=== PATIENT | male | born 1970 | race Caucasian/White ===

== ENCOUNTER 2017-07-16 08:44 | Day surgery (SDC) | payer MEDICAID ==
[2017-07-09 10:45] LABS: APPEARANCE,URINE CLEAR; BILIRUBIN,URINE NEGATIVE (NEGATIVE); GLUCOSE, URINE NEGATIVE (NEGATIVE); KETONES,URINE NEGATIVE (NEGATIVE); LEUKOCYTE ESTERASE,URINE NEGATIVE (NEGATIVE); NITRITE,URINE NEGATIVE (NEGATIVE); PROTEIN,URINE NEGATIVE (NEGATIVE); URINE SPECIFIC GRAVITY 1.028; UROBILINOGEN,URINE NEGATIVE mg/dL (<2.0)
[2017-07-09 10:57] LABS: ABSOLUTE EOSINOPHILS # (AUTO) 0.1 10^3/uL (0.0-0.6); ABSOLUTE LYMPHOCYTES (AUTO) 1.4 10^3/uL (0.5-4.7); ABSOLUTE MONOCYTES (AUTO) 0.4 10^3/uL (0.1-1.4); BASOPHILS % (AUTO) 0.6 % (0-2); EOSINOPHILS % (AUTO) 2.2 % (0-6); HEMATOCRIT 44.3 % (37.9-51.0); HEMOGLOBIN 15.4 g/dL (13.5-17.0); HGB HCT DIFFERENCE 1.9; LYMPHOCYTES % (AUTO) 36.1 % (13-45); MEAN CORPUSCULAR HEMOGLOBIN 32.3 pg (27.0-33.4); MEAN CORPUSCULAR HGB CONC 34.7 g/dL (32.0-36.0); MEAN CORPUSCULAR VOLUME 93 fl (80-97); MONOCYTES % (AUTO) 10.5 % (3-13); RED BLOOD COUNT 4.76 10^6/uL (4.35-5.55); RED CELL DISTRIBUTION WIDTH 13.1 % (11.5-14.0); SEGMENTED NEUTROPHILS % (AUTO) 50.6 % (42-78)
[2017-07-09 11:22] LABS: ANION GAP 11 (5-19); BLOOD UREA NITROGEN 18 mg/dL (7-20); CALCIUM 9.1 mg/dL (8.4-10.2); CARBON DIOXIDE 26 mmol/L (22-30); CHLORIDE 108 mmol/L (98-107); CREATININE RESULT 0.93 mg/dL (0.52-1.25); GLUCOSE 90 mg/dL (75-110); POTASSIUM 4.6 mmol/L (3.6-5.0); SODIUM 145.2 mmol/L (137-145)
--- NOTE | 2017-07-09 13:12 | EKG REPORT ---
SEVERITY:- NORMAL ECG - SINUS RHYTHM : Confirmed by: Chuck Merrill MD 09-Jul-2017 13:11:52
[~2017-07-16 08:44] MED LIST: CEFAZOLIN 2 GM/D5W RTU 2 GM/50 ML RTUPB IV PRN; LACTATED RINGERS 1000 ML IV PRN
[2017-07-16] MEDS ORDERED: BUPIVACAINE HCL 0.5 % INJ/PF 30 ML SDV ONE (10:38)
[2017-07-16] MEDS ORDERED: LIDOCAINE 1% INJ-PF (10 MG/ML) 30 ML SDV ONE (10:39)
[2017-07-16] MEDS ORDERED: MIDAZOLAM 2 MG/2 ML INJ ONE (11:17)
[2017-07-16] MEDS ORDERED: FENTANYL CITRATE INJ/PF 100 MCG/2 ML AMPUL ONE (11:17)
[2017-07-16] MEDS ORDERED: LIDOCAINE 2% INJ-PF (20 MG/ML) 10 ML AMPUL ONE (11:17)
[2017-07-16] MEDS ORDERED: PROPOFOL INJ 200 MG/20 ML VIAL IV ONE (11:18)
[2017-07-16] MEDS ORDERED: ACETAMINOPHEN 100 ML IV ONE (11:18)
[2017-07-16] MEDS ORDERED: ONDANSETRON HCL INJ/PF 4 MG/2 ML SDV ONE ×2 (11:18→13:26)
[2017-07-16] MEDS ORDERED: IBUPROFEN INJ 800 MG/8 ML VIAL IV ONE (11:18)
[2017-07-16] MEDS ORDERED: MORPHINE SULFATE 10 MG/ML INJ IV PRN (11:50)
[2017-07-16] MEDS ORDERED: DIPHENHYDRAMINE HCL 50 MG/ML VIAL IV PRN (11:50)
[2017-07-16] MEDS ORDERED: MEPERIDINE HCL/PF INJ 25 MG/1 ML DISP.SYRIN IV PRN (11:50)
[2017-07-16] MEDS ORDERED: OXYCODONE-ACETAMINOPHEN 5-325 MG TABLET PO PRN ×3 (11:50→12:37)
[2017-07-16] MEDS ORDERED: PROMETHAZINE HCL INJ 25 MG/1 ML VIAL IV PRN ×2 (11:50)
[2017-07-16] MEDS ORDERED: FENTANYL CITRATE INJ/PF 100 MCG/2 ML AMPUL IV PRN ×3 (11:50)
[2017-07-16] MEDS ORDERED: ONDANSETRON HCL INJ/PF 4 MG/2 ML SDV IV PRN ×2 (11:50→12:37)
[2017-07-16] MEDS ORDERED: HYDROMORPHONE HCL INJ/PF 2 MG/ML AMPULE IV PRN (12:37)
--- NOTE | 2017-07-16 12:37 | Operative Report ---
Operative Report DATE OF SURGERY: 07/16/17 PREOPERATIVE DIAGNOSIS: Right carpal tunnel syndrome. Right cubital tunnel syndrome POSTOPERATIVE DIAGNOSIS: Same OPERATION: #1 Right in situ cubital tunnel release. #2 Right endoscopic carpal tunnel release SURGEON: BRISA RICHTER ANESTHESIA: GA COMPLICATIONS: None ESTIMATED BLOOD LOSS: minimal PROCEDURE: Indication for above procedure: 47-year-old male with complaints of numbness and tingling throughout his hand. Patient had neurodiagnostic testing which was ultimately negative for cubital and carpal tunnel syndrome but had clinical examination findings of such. We discussed treatment options and attempted conservative management without resolution of his symptoms. At that point we discussed operative intervention risks and benefits were explained the patient including worsening of symptoms or failure to see improvement. After discussing these risks decision was made to proceed with operative treatment. Procedure In Detail: Patient was seen and evaluated in the preoperative holding area. The RIGHT upper extremity was initialized and marked. Patient received 2g of Ancef IV for bacterial prophylaxis. Patient was taken back to the operative room where transferred to the operative table and placed under general anesthesia. Once they were adequately anesthetized a nonsterile tourniquet was placed on the upper extremity. A surgical team debriefing was performed ensuring all instrumentation was available, the surgical procedure was discussed with possible concerns reviewed. The upper extremity was prepped with chlorhexidine and alcohol and draped in a sterile fashion. A timeout was done identifying correct patient, procedure and extremity everyone in attendance agree with this and verbalized no concerns. The extremity was exsanguinated the tourniquet was inflated to 250 mmHg. A longitudinal skin incision was made centered over the cubital tunnel. Careful dissection was done through the overlying soft tissues any peripheral vasculature was carefully coagulated with bipolar cautery. The branches of the medial antebrachial cutaneous nerve were identified and protected throughout the entirety of the case. Once within the confines of the cubital tunnel the ulnar nerve was identified at the proximal aspect of the wound. At this level I carefully released a medial portion of the triceps and the medial intermuscular septum freeing the ulnar nerve proximally of any overlying soft tissue compression. I then continued to track the ulnar nerve distally releasing Christopher's fascia. At the level of the FCU aponeurosis between the 2 heads of the FCU muscle. The fascia was released once again relieving any external compression from the ulnar nerve distally past the level of the first motor branch. I then freed up the nerve posteriorly ensuring there is no remaining soft tissue bands causing compression. During dissection of the nerve careful attention was directed at avoiding disruption of the ulnar nerve blood supply. Elbow range of motion was then done from full flexion to full extension with full flexion there was evidence of perching of the ulnar nerve but no anterior subluxation or evidence of impingement. And thus I determined patient would not require anterior subcutaneous ulnar nerve transposition. I then turned my attention to carpal tunnel release. A transverse skin incision was made just proximal to the wrist flexion crease ulnar to the palmaris longus. Blunt dissection was performed down to the palmaris longus tendon which was retracted radially. Deep to the palmaris longus tendon was the volar carpal ligament this was incised identifying the median nerve deep. With the use of a [place] elevator any soft tissue/synovium was freed from the undersurface of the transverse carpal ligament. The hook of hamate was identified ulnarly. The ConMed cannulas were then introduced beginning with #1 progressing to a #3 gently dilating the carpal canal. I then introduced the scope within the cannula and identified transverse carpal ligament ensuring the median nerve was not visualized within the cannula. I triangulated distally with a 25-gauge needle identifying the distal aspect of the transverse carpal ligament, to ensure protection of the superficial palmar arch. The arthroscopic knife was used to incise the transverse carpal ligament under direct visualization with the arthroscopic camera. Any excess transverse fibers that remained after the first past were carefully released with a repeat pass. The median nerve was then directly visualized radially without disruption. Once this was completed I placed the #3 dilator and assured I got complete release of the transverse carpal ligament without residual compression. The median nerve was directly visualized and free of any overlying compression. I then turned my attention to release of the volar antebrachial fascia proximally. Once again a [place] was used to open the wound and I proceeded with cannula #1 to #3. The arthroscope was introduced into the cannula and under direct visualization the volar antebrachial fascia was released. Once this was complete I copiusly irrigated the wound with normal saline. The skin incision was closed with 4-0 Monocryl subcutaneous and a running subcuticular 4-0 Monocryl. This was reinforced with Dermabond and Steri- Strips. Sterile, 4 x 4's and a Lance bandage was placed loosely. Sponge counts, instrument counts and needle counts were correct. The was no intraoperative complications patient tolerated the procedure well and was stable to PACU. Postoperative plan: Patient will follow-up in the office as scheduled which point we will proceed with wound check. He may begin gentle range of motion exercises but avoid any heavy lifting at her first postoperative appointment.
[2017-07-16 16:40] VITALS: BP 125/88
--- NOTE | 2017-07-19 07:15 | PDOC DISCHARGE SUMMARY ---
Discharge Summary (SDC) - Discharge Final Diagnosis: Right carpal tunnel syndrome Right cubital tunnel syndrome Date of Surgery: 07/16/17 Discharge Date: 07/16/17 Condition: Good Treatment or Instructions: Schedule Follow Up w/ Dr. Maikel Ding @ [facility] for Surgery to be seen in 10-14 days or as scheduled [place]: [place]: [place]: May remove dressing on postop day #3, keep incision covered and dry. Ice and elevate May begin finger range of motion attempting to make full fist. Stool softener of choice when on pain medication. Prescriptions: Oxycodone HCl/Acetaminophen [Percocet 5-325 mg Tablet] 1 - 2 tab PO ASDIR PRN # 45 tablet PRN Reason: Referrals: JENNIFER BRIGGS DO [Primary Care Provider] - Discharge Diet: As Tolerated Respiratory Treatments at Home: Deep Breathing/Coughing, Incentive Spirometer Discharge Activity: No Lifting Over 10 Pounds, No Lifting/Push/Pulling Report the Following to Your Physician Immediately: Increase in Pain, Fever over 101 Degrees, Unusual Bleeding, Redness, Swelling, Warmth, Increased Soreness
== END 2017-07-16 15:05 | disposition home or self-care (01) ==
LOC: OROUT 08:44
PROVIDERS: ATTEND Orthopaedic Surgery
PROC: 01N40ZZ Release Ulnar Nerve, Open Approach (ICD-10-PCS; principal; 2017-07-16 10:30)
PROC: 01N54ZZ Release Median Nerve, Percutaneous Endoscopic Approach (ICD-10-PCS; 2017-07-16 10:30)
DX: G56.03 Carpal tunnel syndrome, bilateral upper limbs (principal); G56.23 Lesion of ulnar nerve, bilateral upper limbs; K21.9 Gastro-esophageal reflux disease without esophagitis; M79.643 Pain in unspecified hand; Z79.899 Other long term (current) drug therapy; Z87.891 Personal history of nicotine dependence
CPT/HCPCS: 93005; 36415; 85025; 80048; 81001; 93010; 64718; 29848; J2250; J3010; J2405; J2704; J3490; J0690; J0131; J1741; 1810

== ENCOUNTER 2017-10-22 06:05 | Day surgery (SDC) | payer MEDICAID ==
--- NOTE | 2017-10-16 09:30 | EKG REPORT ---
SEVERITY:- NORMAL ECG - SINUS RHYTHM : Confirmed by: Azeb Shin 16-Oct-2017 09:29:49
[2017-10-16 09:45] LABS: ABSOLUTE EOSINOPHILS # (AUTO) 0.1 10^3/uL (0.0-0.6); ABSOLUTE LYMPHOCYTES (AUTO) 1.4 10^3/uL (0.5-4.7); ABSOLUTE MONOCYTES (AUTO) 0.4 10^3/uL (0.1-1.4); BASOPHILS % (AUTO) 0.4 % (0-2); EOSINOPHILS % (AUTO) 2.2 % (0-6); HEMATOCRIT 42.7 % (37.9-51.0); HEMOGLOBIN 14.8 g/dL (13.5-17.0); LYMPHOCYTES % (AUTO) 36.6 % (13-45); MEAN CORPUSCULAR HEMOGLOBIN 31.5 pg (27.0-33.4); MEAN CORPUSCULAR HGB CONC 34.7 g/dL (32.0-36.0); MEAN CORPUSCULAR VOLUME 91 fl (80-97); PLATELET COUNT 216 10^3/uL (150-450); RED BLOOD COUNT 4.69 10^6/uL (4.35-5.55); RED CELL DISTRIBUTION WIDTH 12.7 % (11.5-14.0); SEGMENTED NEUTROPHILS % (AUTO) 50.8 % (42-78); TOTAL CELLS COUNTED % (AUTO) 100 %; WHITE BLOOD COUNT 3.9 10^3/uL (4.0-10.5)
[2017-10-16 09:57] LABS: APPEARANCE,URINE CLEAR; BILIRUBIN,URINE NEGATIVE (NEGATIVE); COLOR,URINE YELLOW; GLUCOSE, URINE 50 mg/dL (NEGATIVE); KETONES,URINE NEGATIVE (NEGATIVE); LEUKOCYTE ESTERASE,URINE NEGATIVE (NEGATIVE); NITRITE,URINE NEGATIVE (NEGATIVE); PROTEIN,URINE NEGATIVE (NEGATIVE); URINE SPECIFIC GRAVITY 1.017; UROBILINOGEN,URINE NEGATIVE mg/dL (<2.0)
[2017-10-16 10:05] LABS: ANION GAP 10 (5-19); BLOOD UREA NITROGEN 16 mg/dL (7-20); CALCIUM 9.5 mg/dL (8.4-10.2); CARBON DIOXIDE 24 mmol/L (22-30); CHLORIDE 106 mmol/L (98-107); GLUCOSE 84 mg/dL (75-110); POTASSIUM 4.2 mmol/L (3.6-5.0); SODIUM 140.1 mmol/L (137-145)
[~2017-10-22 06:05] MED LIST changes: +BUPIVACAINE HCL 0.5 % INJ/PF 30 ML SDV ONE; +LIDOCAINE 0.5% INJ-PF (5 MG/ML) 50 ML SDV SUBCUT PRN; +LIDOCAINE 1% INJ-PF (10 MG/ML) 30 ML SDV ONE
[2017-10-22] MEDS ORDERED: FENTANYL CITRATE INJ/PF 100 MCG/2 ML AMPUL ONE (06:47)
[2017-10-22] MEDS ORDERED: MIDAZOLAM 2 MG/2 ML INJ ONE (06:48)
[2017-10-22] MEDS ORDERED: PROPOFOL INJ 200 MG/20 ML VIAL IV ONE (06:48)
[2017-10-22] MEDS ORDERED: DEXAMETHASONE SOD PHOSPHATE INJ 4 MG/1 ML VIAL ONE (06:48)
[2017-10-22] MEDS ORDERED: ONDANSETRON HCL INJ/PF 4 MG/2 ML SDV ONE (06:48)
[2017-10-22] MEDS ORDERED: PROMETHAZINE HCL INJ 25 MG/1 ML VIAL IV PRN (08:27)
[2017-10-22] MEDS ORDERED: MEPERIDINE HCL/PF INJ 25 MG/1 ML DISP.SYRIN IV PRN (08:27)
[2017-10-22] MEDS ORDERED: DIPHENHYDRAMINE HCL 50 MG/ML VIAL IV PRN (08:27)
[2017-10-22] MEDS ORDERED: FENTANYL CITRATE INJ/PF 100 MCG/2 ML AMPUL IV PRN ×3 (08:27)
[2017-10-22] MEDS ORDERED: OXYCODONE-ACETAMINOPHEN 5-325 MG TABLET PO PRN (09:21)
[2017-10-22] MEDS ORDERED: MORPHINE SULFATE 10 MG/ML INJ IV PRN (09:21)
[2017-10-22] MEDS ORDERED: ONDANSETRON HCL INJ/PF 4 MG/2 ML SDV IV PRN (09:21)
--- NOTE | 2017-10-22 09:21 | Operative Report ---
Operative Report DATE OF SURGERY: 10/22/17 PREOPERATIVE DIAGNOSIS: Left carpal/cubital tunnel syndrome POSTOPERATIVE DIAGNOSIS: Same OPERATION: 1. Left in situ cubital tunnel release. 2. Left endoscopic carpal tunnel release SURGEON: BRISA RICHTER ANESTHESIA: GA COMPLICATIONS: None ESTIMATED BLOOD LOSS: Minimal PROCEDURE: Indication for above procedure: 47-year-old male with complaints of numbness and tingling throughout his LEFT hand. Patient had neurodiagnostic testing which was ultimately negative for cubital and carpal tunnel syndrome but had clinical examination findings of such and patient saw significant improvement after right cubital/carpal tunnel release. We discussed treatment options and attempted conservative management without resolution of his symptoms. At that point we discussed operative intervention risks and benefits were explained the patient including worsening of symptoms or failure to see improvement. After discussing these risks decision was made to proceed with operative treatment. Procedure In Detail: Patient was seen and evaluated in the preoperative holding area. The LEFT upper extremity was initialized and marked. Patient received 2g of Ancef IV for bacterial prophylaxis. Patient was taken back to the operative room where transferred to the operative table and placed under general anesthesia. Once they were adequately anesthetized a nonsterile tourniquet was placed on the upper extremity. A surgical team debriefing was performed ensuring all instrumentation was available, the surgical procedure was discussed with possible concerns reviewed. The upper extremity was prepped with chlorhexidine and alcohol and draped in a sterile fashion. A timeout was done identifying correct patient, procedure and extremity everyone in attendance agree with this and verbalized no concerns. The extremity was exsanguinated the tourniquet was inflated to 250 mmHg. A longitudinal skin incision was made centered over the cubital tunnel. Careful dissection was done through the overlying soft tissues any peripheral vasculature was carefully coagulated with bipolar cautery. The branches of the medial antebrachial cutaneous nerve were identified and protected throughout the entirety of the case. Once within the confines of the cubital tunnel the ulnar nerve was identified at the proximal aspect of the wound. At this level I carefully released a medial portion of the triceps and the medial intermuscular septum freeing the ulnar nerve proximally of any overlying soft tissue compression. I then continued to track the ulnar nerve distally releasing Christopher's fascia. At the level of the FCU aponeurosis between the 2 heads of the FCU muscle. The fascia was released once again relieving any external compression from the ulnar nerve distally past the level of the first motor branch. I then freed up the nerve posteriorly ensuring there is no remaining soft tissue bands causing compression. During dissection of the nerve careful attention was directed at avoiding disruption of the ulnar nerve blood supply. Elbow range of motion was then done from full flexion to full extension with full flexion there was evidence of perching of the ulnar nerve but no anterior subluxation or evidence of impingement. And thus I determined patient would not require anterior subcutaneous ulnar nerve transposition. I then turned my attention to carpal tunnel release. A transverse skin incision was made just proximal to the wrist flexion crease ulnar to the palmaris longus. Blunt dissection was performed down to the palmaris longus tendon which was retracted radially. Deep to the palmaris longus tendon was the volar carpal ligament this was incised identifying the median nerve deep. With the use of a [place] elevator any soft tissue/synovium was freed from the undersurface of the transverse carpal ligament. The hook of hamate was identified ulnarly. The ConMed cannulas were then introduced beginning with #1 progressing to a #3 gently dilating the carpal canal. I then introduced the scope within the cannula and identified transverse carpal ligament ensuring the median nerve was not visualized within the cannula. I triangulated distally with a 25-gauge needle identifying the distal aspect of the transverse carpal ligament, to ensure protection of the superficial palmar arch. The arthroscopic knife was used to incise the transverse carpal ligament under direct visualization with the arthroscopic camera. Any excess transverse fibers that remained after the first past were carefully released with a repeat pass. The median nerve was then directly visualized radially without disruption. Once this was completed I placed the #3 dilator and assured I got complete release of the transverse carpal ligament without residual compression. The median nerve was directly visualized and free of any overlying compression. I then turned my attention to release of the volar antebrachial fascia proximally. Once again a [place] was used to open the wound and I proceeded with cannula #1 to #3. The arthroscope was introduced into the cannula and under direct visualization the volar antebrachial fascia was released. Once this was complete I copiusly irrigated the wound with normal saline. The skin incision was closed with 4-0 Monocryl subcutaneous and a running subcuticular 4-0 Monocryl. This was reinforced with Dermabond and Steri- Strips. Sterile, 4 x 4's and a Lance bandage was placed loosely. Sponge counts, instrument counts and needle counts were correct. The was no intraoperative complications patient tolerated the procedure well and was stable to PACU. Postoperative plan: Patient will follow-up in the office as scheduled which point we will proceed with wound check. He may begin gentle range of motion exercises but avoid any heavy lifting at her first postoperative appointment.
--- NOTE | 2017-10-22 09:21 | Discharge Summary ---
Discharge Summary (SDC) - Discharge Final Diagnosis: Left carpal/cubital tunnel Date of Surgery: 10/22/17 Discharge Date: 10/22/17 Condition: Good Treatment or Instructions: Schedule Follow Up w/ Dr. Maikel Ding @ [facility] for Surgery to be seen in 10-14 days or as scheduled [place]: [place]: [place]: May remove dressing on postop day #3, keep incision covered and dry. Ice and elevate May begin finger range of motion attempting to make full fist. Stool softener of choice when on pain medication. Prescriptions: Oxycodone HCl/Acetaminophen [Percocet 5-325 mg Tablet] 1 - 2 tab PO ASDIR PRN # 30 tablet PRN Reason: Referrals: JENNIFER BRIGGS DO [Primary Care Provider] - Discharge Diet: As Tolerated Respiratory Treatments at Home: Deep Breathing/Coughing Discharge Activity: No Lifting Over 10 Pounds, No Lifting/Push/Pulling Report the Following to Your Physician Immediately: Fever over 101 Degrees, Unusual Bleeding, Redness, Swelling, Warmth, Increased Soreness
[2017-10-22 11:11] VITALS: BP 118/83
== END 2017-10-22 10:55 | disposition home or self-care (01) ==
LOC: OROUT 06:05
PROVIDERS: ATTEND Orthopaedic Surgery
PROC: 01N54ZZ Release Median Nerve, Percutaneous Endoscopic Approach (ICD-10-PCS; principal; 2017-10-22 08:00)
PROC: 01N40ZZ Release Ulnar Nerve, Open Approach (ICD-10-PCS; 2017-10-22 08:00)
DX: G56.02 Carpal tunnel syndrome, left upper limb (principal); G56.22 Lesion of ulnar nerve, left upper limb; K21.9 Gastro-esophageal reflux disease without esophagitis; M54.9 Dorsalgia, unspecified; Z79.899 Other long term (current) drug therapy
CPT/HCPCS: 29848; 64718; 93005; 36415; 85025; 80048; 81001; 93010; J2250; J3490; J1100; J3010; J2405; J2704; J0690; 1810

== ENCOUNTER → 2019-01-01 | Outpatient (CLI) | payer MEDICAID, OTHER ==
--- NOTE | 2019-01-01 15:31 | RADIOLOGY REPORT (SQ) ---
EXAM DESCRIPTION: PARANASAL SINUSES COMPLETED DATE/TIME: 01/01/2019 12:07 pm REASON FOR STUDY: CHRONIC RHINITIS J31.0 CHRONIC RHINITIS COMPARISON: None. NUMBER OF VIEWS: Three views TECHNIQUE: Images of the paranasal sinuses acquired. LIMITATIONS: None. FINDINGS: ORBITS: No fracture. No foreign body. SINUSES: No mucosal thickening. No air fluid levels. FACIAL BONES: No fracture. OTHER: No other significant finding. IMPRESSION: NO FOREIGN BODY OR FRACTURE. NO PLAIN RADIOGRAPHIC EVIDENCE FOR SINUS DISEASE. TECHNICAL DOCUMENTATION: JOB ID: [id number] [employer]- All Rights Reserved Reading location - IP/workstation name: [email or web address]
== END ==
LOC: OD 11:56
PROVIDERS: ATTEND Allergy & Immunology
DX: J31.0 Chronic rhinitis (principal)
CPT/HCPCS: 70220

== ENCOUNTER → 2019-09-08 | Outpatient (CLI) | payer OTHER ==
--- NOTE | 2019-09-08 09:30 | RADIOLOGY REPORT (SQ) ---
EXAM DESCRIPTION: MRI PELVIS COMBO COMPLETED DATE/TIME: 09/08/2019 7:41 am REASON FOR STUDY: LYMPHADENOPATHY (R59.1) R59.1 GENERALIZED ENLARGED LYMPH NODES COMPARISON: None. TECHNIQUE: Multiplanar multisequence imaging without and with contrast including axial, sagittal and coronal fat sat T2, axial and coronal T1, axial and coronal T1 post contrast. CONTRAST TYPE AND DOSE: 15 ML Dotarem. RENAL FUNCTION: Not indicated. ACR Type II contrast agent associated with few, if any, unconfounded cases of NSF LIMITATIONS: None. FINDINGS: PROSTATE: Normal size. Grossly normal zonal anatomy and signal. No focal nodules or mas ses. SEMINAL VESICLES: Normal. PELVIS: No masses. No adenopathy. BLADDER: Normal. PELVIS SKELETAL STRUCTURES: No abnormal marrow signal. EXTRA PELVIC SOFT TISSUES: No masses. No herniation of fat or bowel. OTHER: No other significant finding. IMPRESSION: No pelvic adenopathy or hernia. No abnormality to explain patient's symptoms. TECHNICAL DOCUMENTATION: JOB ID: [id number] [employer]- All Rights Reserved Reading location - IP/workstation name: [email or web address]
== END ==
LOC: RAD 07:36
PROVIDERS: ATTEND Surgery
DX: R10.32 Left lower quadrant pain (principal)
CPT/HCPCS: 72197; A9576